=== PATIENT | male | born 2000 | race Caucasian/White ===

== ENCOUNTER 2022-05-25 20:39 | Emergency (ER) | payer BC ==
[~2022-05-25] VITALS: Ht 180.3 cm; Wt 68.2 kg
[2022-05-25 21:14] VITALS: BP 119/59; TEMP 98.9
[2022-05-25 23:44] VITALS: PULSE 60
== END 2022-05-25 23:44 | disposition home or self-care (01) ==
LOC: COL.ER 20:39
DX: S61.215A Laceration without foreign body of left ring finger without damage to nail, initial encounter (principal); W26.0XXA Contact with knife, initial encounter